=== PATIENT | male | born 1965 | race Caucasian/White ===

== ENCOUNTER 2021-04-14 07:25 | Day surgery (SDC) | payer BC, SELFPAY ==
[~2021-04-14] VITALS: Ht 177.8 cm; Wt 133.8 kg
[2021-04-14] MEDS ORDERED: NS IRRIG SOLN 1000 ML IR ONE (09:11)
[2021-04-14] MEDS ORDERED: DEXAMETHASONE SOD PHOSPHATE 4 MG/ML VIAL IVP ONE (09:11)
[2021-04-14] MEDS ORDERED: SUCCINYLCHOLINE CHLORIDE 20 MG/ML(QUELICIN) IVP ONE (09:11)
[2021-04-14] MEDS ORDERED: fentaNYL CITRATE 250 MCG/5 ML AMP IV ONE (09:11)
[2021-04-14] MEDS ORDERED: ONDANSETRON HCL 4 MG/2 ML VIAL IVP ONE (09:11)
[2021-04-14] MEDS ORDERED: LIDOCAINE/EPI 1% 1:100000 20 ML VIAL INJ ONE (09:11)
[2021-04-14] MEDS ORDERED: METOCLOPRAMIDE HCL 10 MG/2 ML VIAL IVP ONE (09:11)
[2021-04-14] MEDS ORDERED: PROPOFOL 200MG/ 20ML VIAL (DIPRIVAN) IV ONE (09:11)
[2021-04-14] MEDS ORDERED: WATER FOR IRRIGATION,STERILE 4,000 ML IRRIG.SOLN IR ONE (09:11)
[2021-04-14] MEDS ORDERED: DESFLURANE 15 MIN GAS INH ONE (09:11)
[2021-04-14] MEDS ORDERED: LR 1,000 ML IV.SOLN IV ONE (09:11)
[2021-04-14] MEDS ORDERED: CEFAZOLIN SOD 2 GM in D5W 50 ML IV ONE (09:15)
[2021-04-14] MEDS ORDERED: ACETAMINOPHEN I.V. 1000 MG 100 ML IV ONE (13:58)
[2021-04-14] MEDS ORDERED: HYDROmorphone 1 MG/ML INJ. CARTRIDGE IVP PRN ×2 (15:00)
[2021-04-14] MEDS ORDERED: HYDROcodone/ACETAMIN 5-325 MG TAB (NORCO/ VICODIN) PO PRN (15:00)
[2021-04-14] MEDS ORDERED: HYDROmorphone 2 MG/ML VIAL IVP PRN (15:00)
[2021-04-14] MEDS ORDERED: ACETAMINOPHEN 500 MG TABLET PO PRN (15:00)
[2021-04-14] MEDS ORDERED: ONDANSETRON HCL 4 MG/2 ML VIAL IVP PRN ×2 (15:00)
[2021-04-14] MEDS ORDERED: ONDANSETRON 4 MG ODT TAB PO PRN (15:00)
[2021-04-14 17:09] VITALS: BP_SYST 120
== END 2021-04-14 17:00 | disposition home or self-care (01) ==
LOC: SDS 07:25 → SMU 07:26 → EDSEX 09:00 → SDS 17:00
PROVIDERS: ATTEND Otolaryngology
DX: E04.2 Nontoxic multinodular goiter (principal); G47.33 Obstructive sleep apnea (adult) (pediatric); K21.9 Gastro-esophageal reflux disease without esophagitis; Z99.89 Dependence on other enabling machines and devices; Z20.822 Contact with and (suspected) exposure to COVID-19
CPT/HCPCS: 60220; 88307; C1782; J0131; J0330; J0690; J1100; J2405; J2704; J2765; J3010; J7060; J7120; U0003